=== PATIENT | male | born 1950 | race Caucasian/White ===

== ENCOUNTER → 2018-07-08 | Outpatient (CLI) | payer MEDICARE, OTHER ==
[~2018-07-08] MED LIST: ACET-76 PO; ASCO500T8 PO; ASPI-496 PO; CALC-586 PO; CHOL5000 PO; CLOB59LO2 TP; CYAN50003 PO; GLUC1CAP18 PO; KRIL1CAP31 PO; LUTE1CAP PO; ONDA4TAB13 SL; OXYC-302 PO; POTA99TA14 PO; PRAV20TA2 PO; RANI150T23 PO; TACR30OI4 TP; TAMS0.4C2 PO; THYR30TA PO; THYR60TA PO; TURM500C4 PO; UBID100C24 PO; VALA500T4 PO; Vitamin E PO
== END | disposition home or self-care (01) ==
LOC: RAD 14:08
PROVIDERS: ATTEND Urology
DX: N20.0 Calculus of kidney (principal)
CPT/HCPCS: 74018

== ENCOUNTER → 2018-07-09 | Outpatient (CLI) | payer MEDICARE, OTHER ==
[2018-07-09 12:47] LABS: BASOPHILS # (AUTO) 0.02 x10^3/uL (0-0.1); BASOPHILS % (AUTO) 0 % (0-1); EOSINOPHILS # (AUTO) 0.26 x10^3/uL (0-0.4); EOSINOPHILS % (AUTO) 4 % (1-7); LYMPHOCYTES # (AUTO) 1.98 x10^3/uL (1-3.4); LYMPHOCYTES % (AUTO) 27 % (22-44); MD NO; MEAN CORPUSCULAR HEMOGLOBIN 32.2 pg (27.5-34.5); MEAN CORPUSCULAR VOLUME 94.7 fL (81-97); MONOCYTES % (AUTO) 11 % (2-9); NEUTROPHILS # (AUTO) 4.36 x10^3/uL (1.8-6.8); NEUTROPHILS % (AUTO) 59 % (42-75); PLATELET COUNT 227 x10^3/uL (130-400); RED BLOOD COUNT 5.56 x10^6/uL (4.38-5.82); RED CELL DISTRIBUTION WIDTH 14.4 % (9.4-14.8)
[2018-07-09 12:52] LABS: ANION GAP 7 mmol/L (5-15); CALCIUM 8.7 mg/dL (8.5-10.1); CHLORIDE 107 mmol/L (98-107); CREATININE 1.13 mg/dL (0.7-1.3); INTERNATIONAL NORMALIZED RATIO 1.08 (0.93-1.1); PROTHROMBIN TIME 11.1 Seconds (9.6-11.5)
[2018-07-09 13:05] LABS: MICROSCOPIC AUTO
== END | disposition home or self-care (01) ==
LOC: STAR 11:15
PROVIDERS: ATTEND Urology
DX: Z01.818 Encounter for other preprocedural examination (principal); N20.0 Calculus of kidney
CPT/HCPCS: 36415; 80048; 81001; 85025; 85610; 85730; 87086; 93005

== ENCOUNTER 2018-07-17 13:31 | Day surgery (SDC) | payer MEDICARE, OTHER ==
[~2018-07-17] VITALS: Ht 177.8 cm; Wt 100.0 kg
[2018-07-17 13:54] VITALS: BP 137/88
[2018-07-17] MEDS ORDERED: LACTATED RINGERS 1,000 ML IV SCH (13:57)
[2018-07-17] MEDS ORDERED: SUCCINYLCHOLINE 20 MG/ML, 10ML ONE (14:20)
[2018-07-17] MEDS ORDERED: PROPOFOL 10 MG/ML, 20ML ONE (14:20)
[2018-07-17] MEDS ORDERED: METOCLOPRAMIDE 5 MG/ML, 2ML IV PRN (15:00)
[2018-07-17] MEDS ORDERED: KETOROLAC 30 MG/1 ML IV PRN (15:00)
[2018-07-17] MEDS ORDERED: LABETALOL 5MG/ML, 20ML IV PRN (15:00)
[2018-07-17] MEDS ORDERED: ONDANSETRON 2MG/ML, 2ML IVPush PRN (15:00)
[2018-07-17] MEDS ORDERED: ALBUTEROL SULFATE 2.5 MG/3 ML NPPB PRN (15:00)
[2018-07-17] MEDS ORDERED: PROMETHAZINE 25 MG/ML, 1ML IV PRN (15:00)
[2018-07-17] MEDS ORDERED: hydrALAzine 20 MG/ML, 1ML IV PRN (15:00)
[2018-07-17] MEDS ORDERED: OXYcodone 5 MG/5 ML ORAL.SOL UDC PO PRN (15:00)
[2018-07-17] MEDS ORDERED: MEPERIDINE/PF 25MG/0.5ML IVPush PRN (15:00)
[2018-07-17] MEDS ORDERED: FENTANYL PF 100 MCG/2ML IV PRN (15:00)
[2018-07-17] MEDS ORDERED: HYDROmorphone 1 MG/ML, 1ML IV PRN (15:00)
== END 2018-07-17 17:15 | disposition home or self-care (01) ==
LOC: OR 13:31 → MERGE 15:30 → OR 17:15
PROVIDERS: ATTEND Urology
DX: N20.0 Calculus of kidney (principal); E78.5 Hyperlipidemia, unspecified; E66.9 Obesity, unspecified; Z88.1 Allergy status to other antibiotic agents; Z88.8 Allergy status to other drugs, medicaments and biological substances; Z98.890 Other specified postprocedural states; Z79.82 Long term (current) use of aspirin; Z79.890 Hormone replacement therapy; Z79.899 Other long term (current) drug therapy
CPT/HCPCS: J2704; J0330; J7120